=== PATIENT | female | born 1940 | race Caucasian/White ===

== ENCOUNTER → 2016-08-14 | Outpatient (CLI) | payer MEDICARE, OTHER ==
[~2016-08-14] MED LIST: ALLEGRA 60MG TA60 MG PO; ALLEGRA ODT30 MG PO; ASPIRIN 81M81 MG/TA2 PO; ATIVAN 0.50.5 MG/TAB PO; CADUET 5 MG-101 TAB PO; CALTRATE-600 W600 MG PO; CENTRUM SILVER1 TAB PO; COMPLETE SENIOR1 TA1 PO; FLONASEALLERGY NS; HCTZ 25MG TAB25 MG PO; HYDROXYURE500 MG/CAP PO; LASIX 20MG TABL20 MG PO; LEVAQUIN 750MG750 M1 PO; LIPITOR20 MG PO; LIQUIFILM TEARS15 ML OU; LOTENSIN 1010 MG/TAB PO; MUCINEX 60600 MG/TA1 PO; MUCINEX DM 30 M1 TE1 PO; NITROSTAT0.4 MG/TAB SL; PERIDEX (CHLOR480 ML MM; PREDNISONE20 MG PO; PROAIR HFA0.09 MG/AC IH; ROLAIDS 675 MG-1 CT2 PO; RT ADVAIR 228 DISKUS IH; RT ALBUTER2.5 MG/0.5 IH; RT SPIRIVA18 MCG IH; SINGULAIR 110 MG/TAB PO; TUSSIN DM 10 M118 M1 PO; ZYRTEC 10MG10 MG PO
== END ==
LOC: COL.PUL 08-13 13:00
DX: R06.02 Shortness of breath (principal)

== ENCOUNTER 2016-09-23 19:10 | Emergency (ER) | payer MEDICARE, OTHER ==
[~2016-09-23] VITALS: Ht 149.9 cm; Wt 45.9 kg
[~2016-09-23 19:10] MED LIST changes: -ALLEGRA 60MG TA60 MG PO; -CALTRATE-600 W600 MG PO; -CENTRUM SILVER1 TAB PO; -LASIX 20MG TABL20 MG PO; -LEVAQUIN 750MG750 M1 PO; -LIQUIFILM TEARS15 ML OU; -LOTENSIN 1010 MG/TAB PO; -MUCINEX 60600 MG/TA1 PO; -MUCINEX DM 30 M1 TE1 PO; -PREDNISONE20 MG PO; -PROAIR HFA0.09 MG/AC IH; -RT ALBUTER2.5 MG/0.5 IH; -SINGULAIR 110 MG/TAB PO; -TUSSIN DM 10 M118 M1 PO; -ZYRTEC 10MG10 MG PO
[2016-09-23] MEDS ORDERED: CALTRATE-600 W600 MG PO (19:27)
[2016-09-23] MEDS ORDERED: LOTENSIN 1010 MG/TAB PO (19:30)
[2016-09-23 19:31] LABS: BASO # 0.1 (0.0-0.2); BASO % 0.7 % (0.0-2.0); EOS # 0.1 (0.0-0.7); EOS % 1.2 % (0-4.0); GRAN # 5.2 (1.4-6.5); GRAN % 48.1 % (42.2-75.2); HEMOGLOBIN 14.7 g/dl (12.5-16.0); LYMPH # 4.7 (1.2-3.4); LYMPH % 43.6 % (20.0-51.0); MEAN CELL VOLUME 108 fl (80.0-100.0); MEAN CORPUSCULAR HEMOGLOBIN 37 pg (27.0-31.0); MEAN CORPUSCULAR HGB CONC 34 g/dl (33.0-37.0); MEAN PLATELET VOLUME 9.8 fl (7.4-10.4); MONO # 0.7 (0.1-0.6); MONO % 6.2 % (1.7-9.3); PLATELET COUNT 323 K/mm3 (130-400); RED BLOOD COUNT 3.98 M/mm3 (4.10-5.30); REDCELL DISTRIBUTION WIDTH-CV 13.2 % (11.5-14.5); WHITE BLOOD COUNT 10.8 K/mm3 (4.8-10.8)
[2016-09-23 19:39] VITALS: TEMP 96.9
[2016-09-23 19:39] LABS: ANION GAP 12 mmol/L (7-16); BLOOD UREA NITROGEN 12 mg/dL (7-17); CALCIUM 9.4 mg/dL (8.4-10.2); CARBON DIOXIDE 26 mmol/L (22-30); CHLORIDE 101 mmol/L (98-107); CREATININE, serum 0.68 mg/dL (0.52-1.25); GLUCOSE 85 mg/dL (74-106); SODIUM 140 mmol/L (137-145)
[2016-09-23 19:51] LABS: B-TYPE NATRIURETIC PEPTIDE 140 pg/mL (0-450)
[2016-09-23 19:52] LABS: TROPONIN-I < 0.012 ng/mL (0.000-0.034)
[2016-09-23 20:51] VITALS: BP 136/76; PULSE 106
== END 2016-09-23 20:52 | disposition home or self-care (01) ==
LOC: COL.ER 19:10
PROVIDERS: Emergency Medicine
DX: R06.00 Dyspnea, unspecified (principal); R00.0 Tachycardia, unspecified; J44.9 Chronic obstructive pulmonary disease, unspecified; I25.10 Atherosclerotic heart disease of native coronary artery without angina pectoris; I10 Essential (primary) hypertension; F41.9 Anxiety disorder, unspecified
CPT/HCPCS: J8540

== ENCOUNTER 2016-10-24 04:49 | Inpatient (IN) | payer MEDICARE, OTHER ==
[2016-10-24] VITALS (321 sets, daily range): BP systolic 107–177; BP diastolic 62–86; PULSE 91–105; TEMP 97.4–97.9; O2SAT 88–100
[~2016-10-24] VITALS: Ht 147.3 cm; Wt 48.3 kg
[~2016-10-24 04:49] MED LIST changes: +CALTRATE-600 W600 MG PO; +LOTENSIN 1010 MG/TAB PO
[2016-10-24 05:13] LABS: BASO % 0.2 % (0.0-2.0); EOS % 0.4 % (0-4.0); GRAN # 6.4 (1.4-6.5); GRAN % 79.4 % (42.2-75.2); HEMATOCRIT 39.3 % (37.0-47.0); HEMOGLOBIN 13.8 g/dl (12.5-16.0); LYMPH % 12.6 % (20.0-51.0); MEAN CELL VOLUME 106 fl (80.0-100.0); MEAN CORPUSCULAR HEMOGLOBIN 37 pg (27.0-31.0); MEAN CORPUSCULAR HGB CONC 35 g/dl (33.0-37.0); MONO # 0.6 (0.1-0.6); MONO % 7.2 % (1.7-9.3); PLATELET COUNT 195 K/mm3 (130-400); RED BLOOD COUNT 3.72 M/mm3 (4.10-5.30); REDCELL DISTRIBUTION WIDTH-CV 12.3 % (11.5-14.5)
[2016-10-24 05:23] LABS: ADJUSTED CALCIUM 8.7 mg/dL (8.4-10.2); ALBUMIN 3.7 gm/dL (3.5-5.0); BILIRUBIN,TOTAL 1.1 mg/dL (0.0-1.0); CALCIUM 8.5 mg/dL (8.4-10.2); CREATININE, serum 0.68 mg/dL (0.52-1.25); POTASSIUM 3.8 mmol/L (3.4-5.0); TOTAL PROTEIN 6.3 gm/dL (6.4-8.2)
[2016-10-24 05:32] LABS: INFLUENZA B NEGATIVE
[2016-10-24 05:42] LABS: TROPONIN-I 0.225 ng/mL (0.000-0.034)
[2016-10-24] MEDS ORDERED: CENTRUM SILVER1 TAB PO (06:35)
[2016-10-24] MEDS ORDERED: LIQUIFILM TEARS15 ML OU (06:35)
[2016-10-24] MEDS ORDERED: MUCINEX 60600 MG/TA1 PO (06:36)
[2016-10-24] MEDS ORDERED: TUSSIN DM 10 M118 M1 PO (06:37)
[2016-10-24] MEDS ORDERED: ALLEGRA 60MG TA60 MG PO (06:37)
[2016-10-24 13:26] LABS: PROTHROMBIN TIME 11.4 SECONDS (9.7-12.8)
[2016-10-25 00:33] VITALS: BP 140/57; PULSE 95; TEMP 97.8
[2016-10-25 04:44] VITALS: BP 149/72; PULSE 95; TEMP 97.9
[2016-10-25 07:35] VITALS: BP 151/54; PULSE 98; TEMP 98.6
[2016-10-25 11:37] VITALS: BP 144/51; PULSE 95; TEMP 97.9
[2016-10-25 12:41] LABS: HEMATOCRIT 41.8 % (37.0-47.0); HEMOGLOBIN 14.8 g/dl (12.5-16.0); MEAN CELL VOLUME 106 fl (80.0-100.0); MEAN CORPUSCULAR HEMOGLOBIN 37 pg (27.0-31.0); MEAN CORPUSCULAR HGB CONC 35 g/dl (33.0-37.0); MEAN PLATELET VOLUME 10.3 fl (7.4-10.4); RED BLOOD COUNT 3.96 M/mm3 (4.10-5.30); REDCELL DISTRIBUTION WIDTH-CV 12.1 % (11.5-14.5); WHITE BLOOD COUNT 12.9 K/mm3 (4.8-10.8)
[2016-10-25 12:42] LABS: PLATELET COUNT 347 K/mm3 (130-400)
[2016-10-25 12:53] LABS: CALCIUM 9.3 mg/dL (8.4-10.2); CREATININE, serum 0.56 mg/dL (0.52-1.25); POTASSIUM 3.7 mmol/L (3.4-5.0)
[2016-10-25 16:06] VITALS: BP 162/86; PULSE 107; TEMP 97.6
[2016-10-25 21:42] VITALS: BP 153/77; PULSE 90; TEMP 97.6
[2016-10-26 00:38] VITALS: BP 158/74; PULSE 92; TEMP 98.2
[2016-10-26 05:17] VITALS: BP 131/67; PULSE 86; TEMP 97.4
[2016-10-26 08:27] VITALS: BP 132/54; PULSE 95; TEMP 97.6
[2016-10-26 10:24] LABS: BASO % 0.1 % (0.0-2.0); GRAN # 9.9 (1.4-6.5); GRAN % 89.7 % (42.2-75.2); HEMATOCRIT 39.4 % (37.0-47.0); HEMOGLOBIN 13.9 g/dl (12.5-16.0); LYMPH # 0.7 (1.2-3.4); LYMPH % 6.3 % (20.0-51.0); MEAN CELL VOLUME 105 fl (80.0-100.0); MEAN CORPUSCULAR HEMOGLOBIN 37 pg (27.0-31.0); MEAN CORPUSCULAR HGB CONC 35 g/dl (33.0-37.0); MEAN PLATELET VOLUME 10.6 fl (7.4-10.4); MONO # 0.4 (0.1-0.6); MONO % 3.4 % (1.7-9.3); PLATELET COUNT 324 K/mm3 (130-400); RED BLOOD COUNT 3.77 M/mm3 (4.10-5.30); REDCELL DISTRIBUTION WIDTH-CV 12.2 % (11.5-14.5); WHITE BLOOD COUNT 11.1 K/mm3 (4.8-10.8)
[2016-10-26 10:26] LABS: CALCIUM 8.9 mg/dL (8.4-10.2); CREATININE, serum 0.57 mg/dL (0.52-1.25); POTASSIUM 3.8 mmol/L (3.4-5.0)
[2016-10-26 12:29] VITALS: BP 127/72; PULSE 105; TEMP 97.6
[2016-10-26 17:16] VITALS: BP 149/73; PULSE 106; TEMP 97.5
[2016-10-26 20:36] VITALS: BP 173/67; PULSE 112; TEMP 97.5
[2016-10-27] VITALS (7 sets, daily range): BP systolic 100–149; BP diastolic 42–87; PULSE 59–112; TEMP 97.4–98.3
[2016-10-27 07:49] LABS: BASO % 0.1 % (0.0-2.0); GRAN # 12.9 (1.4-6.5); GRAN % 85.5 % (42.2-75.2); HEMATOCRIT 39.7 % (37.0-47.0); HEMOGLOBIN 13.8 g/dl (12.5-16.0); LYMPH # 0.5 (1.2-3.4); LYMPH % 3.3 % (20.0-51.0); MEAN CELL VOLUME 107 fl (80.0-100.0); MEAN CORPUSCULAR HEMOGLOBIN 37 pg (27.0-31.0); MEAN CORPUSCULAR HGB CONC 35 g/dl (33.0-37.0); MONO # 1.6 (0.1-0.6); MONO % 10.8 % (1.7-9.3); PLATELET COUNT 412 K/mm3 (130-400); RED BLOOD COUNT 3.72 M/mm3 (4.10-5.30); REDCELL DISTRIBUTION WIDTH-CV 12.5 % (11.5-14.5)
[2016-10-28] VITALS (7 sets, daily range): BP systolic 94–141; BP diastolic 40–62; PULSE 56–115; TEMP 97.4–97.8
[2016-10-28 07:21] LABS: ADD PATHOLOGY DIFF REVIEW NO
[2016-10-28 07:41] LABS: MEAN CELL VOLUME 106 fl (80.0-100.0); MEAN CORPUSCULAR HGB CONC 35 g/dl (33.0-37.0); MEAN PLATELET VOLUME 10.1 fl (7.4-10.4); RED BLOOD COUNT 3.15 M/mm3 (4.10-5.30); REDCELL DISTRIBUTION WIDTH-CV 12.3 % (11.5-14.5); WHITE BLOOD COUNT 6.9 K/mm3 (4.8-10.8)
[2016-10-28 07:45] LABS: HEMATOCRIT 33.4 % (37.0-47.0); HEMOGLOBIN 11.7 g/dl (12.5-16.0); MEAN CORPUSCULAR HEMOGLOBIN 37 pg (27.0-31.0); PLATELET COUNT 279 K/mm3 (130-400)
[2016-10-28 07:52] LABS: BAND 33 % (0-10); NEUTROPHILS 44 % (42.0-75.2); PLATELET ESTIMATE NORMAL (NORMAL); TOTAL CELLS COUNTED 100
[2016-10-28 07:56] LABS: CALCIUM 7.8 mg/dL (8.4-10.2); CREATININE, serum 0.69 mg/dL (0.52-1.25); MAGNESIUM 2.2 mg/dL (1.6-2.3); POTASSIUM 3.9 mmol/L (3.4-5.0)
[2016-10-29 00:23] VITALS: BP 133/47; PULSE 100; TEMP 98.2
[2016-10-29 04:32] VITALS: BP 132/54; PULSE 93; TEMP 98.2
[2016-10-29 07:41] VITALS: BP 115/63; PULSE 103; TEMP 97.8
[2016-10-29] MEDS ORDERED: ZYRTEC 10MG10 MG PO (08:13)
[2016-10-29] MEDS ORDERED: LEVAQUIN 750MG750 M1 PO (08:15)
[2016-10-29] MEDS ORDERED: MUCINEX DM 30 M1 TE1 PO (08:17)
[2016-10-29] MEDS ORDERED: SINGULAIR 110 MG/TAB PO (08:17)
[2016-10-29] MEDS ORDERED: PREDNISONE20 MG PO (08:19)
[2016-10-29] MEDS ORDERED: RT ALBUTER2.5 MG/0.5 IH (09:47)
[2016-10-29] MEDS ORDERED: PROAIR HFA0.09 MG/AC IH (10:38)
[2016-10-29 12:20] VITALS: BP 116/42; PULSE 94; TEMP 98.2
== END 2016-10-29 15:34 | disposition home health service (06) | DRG 191 ==
LOC: COL.ER 04:49 → ICU 06:44 → MEDICAL 06:44
PROVIDERS: Emergency Medicine; Internal Medicine; Internal Medicine Cardiovascular Disease; Physician Assistant
PROC: B2111ZZ Fluoroscopy of Multiple Coronary Arteries using Low Osmolar Contrast (ICD-10-PCS; principal; 2016-10-24)
PROC: 4A023N7 Measurement of Cardiac Sampling and Pressure, Left Heart, Percutaneous Approach (ICD-10-PCS; 2016-10-24)
DX: J44.1 Chronic obstructive pulmonary disease with (acute) exacerbation (principal); I20.0 Unstable angina; I10 Essential (primary) hypertension; Z85.3 Personal history of malignant neoplasm of breast; Z87.891 Personal history of nicotine dependence; J01.41 Acute recurrent pansinusitis; J32.4 Chronic pansinusitis; R73.9 Hyperglycemia, unspecified; F41.1 Generalized anxiety disorder
CPT/HCPCS: 99223-AI; 99232-AI; 99239; C1760; J0153; J1650; J1956; J2250; J2405; J2930; J3010; J7030; J7512; Q9967

== ENCOUNTER 2016-11-05 17:27 | Emergency (ER) | payer MEDICARE, OTHER ==
[~2016-11-05] VITALS: Ht 149.9 cm; Wt 46.4 kg
[~2016-11-05 17:27] MED LIST changes: +ALLEGRA 60MG TA60 MG PO; +CENTRUM SILVER1 TAB PO; +LEVAQUIN 750MG750 M1 PO; +LIQUIFILM TEARS15 ML OU; +MUCINEX 60600 MG/TA1 PO; +MUCINEX DM 30 M1 TE1 PO; +PREDNISONE20 MG PO; +PROAIR HFA0.09 MG/AC IH; +RT ALBUTER2.5 MG/0.5 IH; +SINGULAIR 110 MG/TAB PO; +TUSSIN DM 10 M118 M1 PO; +ZYRTEC 10MG10 MG PO
[2016-11-05 17:38] VITALS: TEMP 97.7
[2016-11-05 18:22] LABS: PH 7 (5-8); SQUAMOUS EPITHELIAL None Seen /hpf; URINE APPEARANCE Clear; URINE BACTERIA None Seen /hpf; URINE BILIRUBIN Negative (NEGATIVE); URINE BLOOD Negative (NEGATIVE); URINE COLOR Colorless; URINE GLUCOSE Negative (NEGATIVE); URINE KETONE Negative (NEGATIVE); URINE RBC 0-2 /hpf; URINE UROBILINOGEN Negative (NEGATIVE); URINE WBC 0-2 /hpf
[2016-11-05 18:29] LABS: ALBUMIN 3.5 gm/dL (3.5-5.0); CALCIUM 8.6 mg/dL (8.4-10.2); CREATININE, serum 0.52 mg/dL (0.52-1.25); POTASSIUM 3.9 mmol/L (3.4-5.0)
[2016-11-05] MEDS ORDERED: LASIX 20MG TABL20 MG PO (18:55)
[2016-11-05 20:19] VITALS: BP 196/91; PULSE 84
== END 2016-11-05 20:20 | disposition home or self-care (01) ==
LOC: COL.ER 17:27
PROVIDERS: Emergency Medicine
DX: R60.0 Localized edema (principal); I10 Essential (primary) hypertension; J44.9 Chronic obstructive pulmonary disease, unspecified; Z87.891 Personal history of nicotine dependence

== ENCOUNTER → 2017-01-28 | Outpatient (CLI) | payer MEDICARE, OTHER ==
[~2017-01-28] MED LIST changes: +LASIX 20MG TABL20 MG PO
== END ==
LOC: MC.RAD 08:35
DX: Z12.31 Encounter for screening mammogram for malignant neoplasm of breast (principal)

== ENCOUNTER → 2018-01-29 | Outpatient (CLI) | payer MEDICARE, OTHER | LOC: MC.RAD 13:16 | DX: Z12.31 Encounter for screening mammogram for malignant neoplasm of breast (principal); R92.0 Mammographic microcalcification found on diagnostic imaging of breast ==

== ENCOUNTER → 2018-02-11 | Outpatient (CLI) | payer MEDICARE, OTHER | LOC: MC.RAD 12:39 | DX: R92.1 Mammographic calcification found on diagnostic imaging of breast (principal) ==